=== PATIENT | female | born 1975 | race Caucasian/White ===

== ENCOUNTER 2023-08-09 16:37 | Inpatient (IN) | payer BC, SELFPAY ==
[2023-08-09 13:19] VITALS: BP 101/80; BMI 31.9
[2023-08-09 13:35] LABS: % Eosinophils 18.5 % (0-6); % Immature Granulocytes 0.3 % (0-0.5); % Lymphocytes 40.3 % (20.5-51.1); % Monocytes 7.1 % (1.7-9.3); % Neutrophils 32.8 % (42.2-75.2); Absolute Basophils 0.1 10^3/uL (0-0.2); Absolute Eosinophils 1.3 10^3/uL (0-0.7); Absolute Lymphocytes 2.9 10^3/uL (1.2-3.4); Absolute Monocytes 0.5 10^3/uL (0.1-0.6); Absolute Neutrophils 2.4 10^3/uL (1.4-6.5); Hematocrit 35.1 % (37.0-47.0); Hemoglobin 12.9 g/dL (12.0-16.0); Mean Corp Hgb Conc. 36.8 g/dL (33.0-37.0); Mean Corpuscular Hgb 31.9 pg (27.0-31.0); Mean Corpuscular Volume 86.7 fL (81.0-99.0); Mean Platelet Volume 8.8 fL (7.4-10.4); Nucleated Red Blood Cells % 0 %; Platelet Count 254 10^3/uL (130-400); Red Blood Cell Count 4.05 10^6/uL (4.20-5.40); Red Cell Dist. Width 12.4 % (11.5-14.5); White Blood Cell Count 7.2 10^3/uL (4.8-10.8)
[2023-08-09 13:46] LABS: ALT (SGPT) 22 U/L (0-35); AST (SGOT) 28 U/L (14-36); Albumin 4.4 g/dl (3.5-5.0); Alkaline Phosphatase 81 U/L (38-126); Blood Urea Nitrogen 18 mg/dl (7-17); Calcium 9.7 mg/dl (8.4-10.2); Carbon Dioxide 26 mmol/L (22-30); Chloride 105 mmol/L (98-107); Estimated Creatinine Clearance > 125 ml/min; Glucose 124 mg/dl (70-99); Potassium 3.6 mmol/L (3.5-5.1); Sodium 140 mmol/L (135-145); Total Bilirubin 0.6 mg/dl (0.2-1.3); Total Protein 6.9 g/dl (6.3-8.2); eGFR > 60.00
[2023-08-09 14:00] VITALS: BP 106/61
[2023-08-09 14:28] LABS: Troponin I < 0.012 ng/ml
--- NOTE | 2023-08-09 14:31 | ED.GENMED ---
History of Present Illness
General
Chief Complaint: Fainting Sensation
Source: patient and spouse
Exam Limitations: none
Time Seen by Provider: 08/09/23 13:22
Nursing documentation reviewed up to this point in time: agreed with
Travel History
Have you had any contact with someone who has COVID-19?: No
Do you have any symptoms of coronavirus? Fever > 100 degrees, chills, cough, shortness of breath, sore throat, loss of taste or smell, muscle aches, or headache?: No
History of Present Illness
History of Present Illness:
47-year-old female with past medical history of obesity who presents to the emergency room with her for evaluation of abdominal pain and associated dizziness, nausea/vomiting. Patient reports that she was in her normal state of health this
morning and was out for lunch with a friend this afternoon. She says that after she finished eating she began to have acute onset of upper abdominal pain. She says that pain became quite severe and she began to feel lightheaded as if she might
pass out. She says that she felt nauseated and she had an episode of vomiting. She says that her friend checked patient's pulse and noted that it was in the 40s and EMS was called to bring her to the hospital. Patient says that she still has
abdominal pain although not quite as severe�points to the upper abdomen and the right side somewhat worse than the left. She denies any chest pain at any point in time. She denies any diarrhea today although she did have diarrhea a few days ago
after eating [employer]. She denies any urinary issues. She says she has never had similar symptoms in the past. She did receive 4 mg of IV Zofran from EMS which seems to help with her nausea.
Review of Systems
Review of Systems
All Other Systems: ROS reviewed and negative except as documented in HPI and ROS
Constitutional: Denies fever or chills
EENT: Denies sore throat or runny nose
Respiratory: Denies cough or trouble breathing
Cardiac: Reports diaphoresis and syncope (Presyncope); Denies chest pain or palpitations
ABD/GI: Reports abdominal pain, nausea and vomiting; Denies diarrhea or constipated
: Denies dysuria or flank pain
Musculoskeletal: Denies neck pain or back pain
Neurological: Reports dizzy; Denies headache, weakness or numbness
Phy Exam
Physical Exam
Physical Exam:
General: Awake, alert, oriented x3; no acute distress
Head: Normocephalic, atraumatic
Eyes: Conjunctiva normal, sclera anicteric
Throat: Airway intact, handling secretions
Neck: Trachea midline, supple without meningismus
Lungs: Clear to auscultation bilaterally, no wheezing, rales, rhonchi
Heart: Bradycardia with regular rhythm, no murmurs, gallops, or rubs
Abd: Soft, non distended, tender to palpation right upper abdomen with voluntary guarding
Back: No CVA tenderness
Neuro: Cranial nerves grossly intact, speech fluid
Skin: no rash
Extremities: No edema in extremities, equal pulses in all extremities
Scores
Heart Failure Risk
Heart Failure Risk Score: Not Applicable
Heart Score for Chest Pain Patients
STEMI patient?: Not applicable
Withdrawal Assessment of Alcohol
Withdrawal Assessment Completed?: Not applicable
Course
Orders/Labs/Results
Orders:
Orders
08/09/23 13:15
Electrocardiogram (*1) Urgent
Reason for Study: Syncope
EKG- Treatment ONCE
08/09/23 13:18
Complete Blood Count/With Diff Urgent
Comprehensive Metabolic Panel Urgent
Lipase Urgent
Comment: ADD ON
08/09/23 13:54
US Abdomen Complete/Upper Urgent
Comment:
Reason For Exam: RUQ abd pain
08/09/23 13:55
Troponin I Urgent
08/09/23 13:57
Add On- LAB Urgent
Tests Added?: Lipase
Abnormal Lab Results
08/09/23
13:18
RBC 4.05 L 10^6/uL
(4.20-5.40)
Hct 35.1 L %
(37.0-47.0)
MCH 31.9 H pg
(27.0-31.0)
Absolute Eos (auto) 1.3 H 10^3/uL
(0-0.7)
Neutrophils % 32.8 L %
(42.2-75.2)
Eosinophils % 18.5 H %
(0-6)
BUN 18 H mg/dl
(7-17)
Glucose 124 H mg/dl
(70-99)
Lipase > 4000 H* U/L
(23-300)
08/09/23 13:18
08/09/23 13:18
Vital Signs
Initial and Last Documented VS:
Initial Vital Signs
Pulse Ox
100
08/09/23 13:18
Last Documented Vital Signs
Temp Pulse Resp BP Pulse Ox
36.7 C 42 15 101/80 97
08/09/23 13:19 08/09/23 13:45 08/09/23 13:45 08/09/23 13:19 08/09/23 13:45
MDM/Problems Addressed
Differential Diagnosis Includes:
Lightheadedness: Bradydysrhythmia, increased vagal tone/vasovagal episode in the setting of pain, dehydration
Abdominal pain: Cholecystitis, cholelithiasis, choledocholithiasis, gastritis, pancreatitis, appendicitis less likely based on abruptness of onset
MDM/Problems Addressed:
47-year-old female presents for evaluation of abdominal pain, lightheadedness�ate lunch and had acute onset abdominal pain that became quite severe which was followed by lightheadedness, sweatiness and nausea/vomiting. Symptoms improved slightly
but still has significant pain. Vital signs significant for bradycardia but otherwise unremarkable. EKG shows sinus bradycardia with no AV block. Plan to place an IV check labs including CBC and a CMP; will check a troponin. Will check a lipase.
Will check upper abdominal ultrasound. Will reassess after the above. Suspect likely symptomatic cholelithiasis and increased vagal tone related to pain resulting in bradycardia and lightheadedness.
Labs reviewed: CBC unremarkable, CMP shows no clinically significant abnormalities�notably normal LFTs however her lipase is markedly elevated at >4000 consistent with a diagnosis of acute pancreatitis. By history this sounds like gallstone
pancreatitis but interestingly no gallstones noted on abdominal ultrasound. Suspect will need MRCP. Will admit for continued management of acute pancreatitis�Case discussed with hospitalist for admission.
Chronic conditions affecting care:
Obesity�higher risk for gallstones
*Radiology
Radiology exam reviewed: radiology read reviewed
*Pulse Oximetry
Patient hypoxic: no
*EKG
Interpreted by ED Provider?: Yes
Heart Rate: 44
Rate: bradycardiac
Rhythm: sinus
[place]: normal axis
Interval: normal interval
QRS Pattern: normal QRS
Ischemia: no ischemia
*Critical Care Note
Total Time (30-74mins, 75-104mins- exclusive of procedures): Not Applicable
Data Reviewed
Source: patient and spouse
ED Attending Note
-
Portions of this chart may have been created with voice recognition software.� Occasional wrong word or��sound alike� substitutions may have occurred due to the inherent limitations of voice recognition software.
Discharge Plan
Departure
Patient Disposition: Admit
Date of Disposition: 08/09/23
Time of Disposition: 15:23
Admit to doctor: Noir
Presentation/result/management discussed w/ accepting MD/DO: Hospitalist
Discharge Problem:
Acute pancreatitis, Bradycardia, sinus
Referrals:
Saleem Torres DO [Family Provider] -
Interventions
Interventions:
*Risk Screen - Suicide Last Done: 08/09/23 13:21
*General Assessment Last Done: 08/09/23 13:21
*Neglect/Abuse Screening Last Done: 08/09/23 13:21
ED- Fall Risk Assessment Last Done: 08/09/23 13:28
*ED COVID-19 Vaccine History Last Done: 08/09/23 13:21
ED- Cardiac Assessment Last Done: 08/09/23 13:28
ED- Neurological Assessment Last Done: 08/09/23 13:28
Discharge Date and Time
Print Language: SRI LANKAN
[2023-08-09 15:10] LABS: Lipase > 4000 U/L (23-300)
--- NOTE | 2023-08-09 16:24 | HPS.HSE ---
Addendum entered and electronically signed by Dre Johnson MD 08/09/23 16:42:
I saw and examined the patient.
The WHOLESALE LOAN PROCESSOR or PA's note was reviewed and I agree with the note.
Comment: 47-year-old female came with severe abdominal pain, nausea and vomiting. Lipase greater than 4000. Consistent with pancreatitis. Ultrasound abdomen with no gallstones. In the ED there was suspicion of stone in pancreatic duct. Patient
currently does not have any pain. No signs of sepsis. LFT's wnl. Will defer MRI/MRCP to GI. Lipase in AM. N.p.o., pain control, lactated Ringer's at 250 cc.LT@250cc/hr. check Igg4. denies etoh,NSAID use. Bradycardia suspect secondary to vagal
response from abdominal pain. Continue to monitor on telemetry.
General: Comfortable and Conversant
HEENT: Anicteric and Moist mucous membranes
Respiratory: Clear and Non Labored Respirations
Cardiac: S1/S2, Regular Rhythm and Bradycardia (Slightly)
GI: Soft and Tender (Mild tenderness in right upper quadrant and epigastric region without rebound or guarding)
Musculoskeletal: No Clubbing, No Cyanosis and No Edema
Neuro: Awake, Alert, Oriented and Nonfocal/grossly intact
Psych: Calm
Original Note:
Family Physician
-
Family Physician: Saleem Torres
Chief Complaint
-
Abdominal Pain
History of Present Illness
This is a 47 year old female with past medical history of insulin resistance and gluten intolerance that presents to the emergency department with abdominal pain. She reports the pain started today while she was eating lunch. Patient notes once her
abdominal pain started this afternoon, she experienced sweating, lightheadedness, cramping, pallor and low heart rate per her smart watch. She admits to an episode of vomiting prior to presenting to the emergency department. She reports she has had
abdominal discomfort after eating for the past week which was accompanied by diarrhea. Patient reports today's episode of abdominal pain was more severe than previous episodes, prompting her to present to the emergency department today. Patient
reports she typically avoids gluten but has been eating out recently and has been eating gluten. She describes the pain as severe and notes it is in the upper half of her abdomen. She denies fevers, sweats, and chills.
Medical History
Past Medical History
Past Medical History: Reports Other
Additional Past Medical History:
Gluten Intolerance
Insulin Resistance
Past Surgical History: Reports Other
Additional Past Surgical History:
Left Knee Surgery
Social History
Tobacco: Former Smoker (Quit over 20 years ago)
Alcohol: None
Family History
Family History: Not pertinent
Allergies / Home Medications
Allergies reflects when Allergies were last updated in [employer].
Home Medications with original date entered in [employer]
Allergy/Medication List:
Allergies
Allergy/AdvReac Type Severity Reaction Status Date / Time
gluten Allergy Hives Verified 08/09/23 13:19
Home Medications
Lactobac no.2-Bifidobac no.1-S. thermo 112.5 billion cell capsule (Visbiome) 1 cap PO DAILY 08/09/23
adrenal cortex (porcine) 80 mg tablet 80 mg PO DAILY 08/09/23
digestive enzymes 1 cap PO DAILY 08/09/23
fish oil-dha-epa 1,200 mg-144 mg-216 mg capsule 1 cap PO DAILY 08/09/23
tyrosine 500 mg capsule 500 mg PO DAILY 08/09/23
vitamin D3 125 mcg (5,000 unit)-vitamin K2 100 mcg capsule 1 cap PO DAILY 08/09/23
Review of Systems
-
A 12 point ROS was completed and negative except as noted: Yes
Constitutional: Denies Fever or Chills
Respiratory: Denies Cough or Trouble Breathing
Cardiac: Denies Chest Pain or Palpitations
Abdomen/GI: Reports See HPI
Physical Exam
Vital Signs
Vital Signs
Temp Pulse Resp BP Pulse Ox
98.1 F 52 13 106/61 95
08/09/23 13:19 08/09/23 14:00 08/09/23 14:00 08/09/23 14:00 08/09/23 14:00
Physical Exam
General: Comfortable and Conversant
HEENT: Anicteric and Moist mucous membranes
Respiratory: Clear and Non Labored Respirations
Cardiac: S1/S2, Regular Rhythm and Bradycardia (Slightly)
GI: Soft and Tender (Mild tenderness in right upper quadrant and epigastric region without rebound or guarding)
Rectal: Deferred by Provider
Musculoskeletal: No Clubbing, No Cyanosis and No Edema
Skin: Warm and Dry
Neuro: Awake, Alert, Oriented and Nonfocal/grossly intact
Psych: Calm
Laboratory Results
-
08/09/23 13:18
08/09/23 13:18
Laboratory Results
Total Bilirubin 0.6 mg/dl (0.2-1.3) 08/09/23 13:18
AST 28 U/L (14-36) 08/09/23 13:18
ALT 22 U/L (0-35) 08/09/23 13:18
Alkaline Phosphatase 81 U/L (38-126) 08/09/23 13:18
Troponin I < 0.012 ng/ml 08/09/23 13:55
Lipase Cancelled 08/09/23 13:55
Data Reviewed
-
Lab Data: Labs Reviewed by me
Impression/Plan
-
Acute Pancreatitis
-Consult GI
-Continue NPO/IVFs
-Check triglyceride, and IgG 4 level
Gluten Intolerance
-Patient reports she has never been formally been tested for Celiac disease but has been avoid gluten for many years
DVT proph: Lovenox
Code Status: Full Code
--- NOTE | 2023-08-09 16:42 | W.PN.UPDATE ---
Update Note
Progress Note Update
For billing purpose only
--- NOTE | 2023-08-09 16:55 | CON.GI ---
Addendum entered and electronically signed by Yenifer Rosen DO 08/09/23 18:56:
Patient seen and examined independently of GRANT. I agree with her note with my additions below
Katherin is a 47-year-old female who does not see medical doctors but follows with a functional medicine RN. She comes in with multiple episodes of epigastric abdominal discomfort with radiation into the back with some associated nausea that really
progressed until this morning she also vomited and the pain lasted over an hour. She then came to the emergency room where she had blood work showing an elevated lipase greater than 4000. Her LFTs are normal. Her ultrasound showed no ductal
dilatation.
She does not drink alcohol, her ultrasound showed no ductal dilatation and her gallbladder was well-visualized and is normal. Pancreas is not well-visualized on ultrasound. No family history of pancreatitis. She denies any other GI symptoms with
no dysphagia, nausea, vomiting, chronic abdominal pain she does have some mild chronic constipation and was taking magnesium glycine 8 in the past. She takes multiple supplements including: seed probiotic, vitamin D/K2, adrenal supplement,
thyroidtane, fish oil, silver colloid, methylated B12, 'Ryze coffee' 2 cups a day which is a mushroom based coffee and 'Ryze cocoa' at night she states she has been taking the coffee and Coke over the past 3 to 4 weeks. She was on Ozempic but has
not been on this in over a year.
Her recent best friend was also diagnosed with pancreatitis just a couple of days ago. She says her friend drink significant alcohol.
# Epigastric pain and elevated lipase with normal LFTs and ultrasound -she does not drink alcohol, there is no biliary stones on imaging and LFTs are normal, non-smoker
-- Currently asymptomatic and stable
-- She does meet criteria for pancreatitis based on her epigastric pain and elevated lipase
-- Etiology for the pancreatitis -medications especially various supplements and herbals vs infectious vs malignancy (doubt) -unlikely stones based on completely normal LFTs and an ultrasound
-- IV fluids with lactated Ringer's, check triglycerides
-- Told her to avoid all supplements unless they are absolutely necessary for her health
-- Clear liquids are fine
-- Told her all future GLP-1 drugs are not okay in the setting of having pancreatitis
Original Note:
Consultation
-
Date/Time Consultation Requested: 08/09/23 1600
Date/Time Consultation Performed: 08/09/23 1615
Requesting Provider: HARDEEP Cavanaugh
Performing Provider: Dr. Rosen/Grant Neal
Reason for Consultation: abd pain, elevated lipase
Medical History
Chief Complaint / HPI
Chief Complaint: abdominal pain, N/V
History of Present Illness:
47-year-old female with past medical history of documented gestational diabetes otherwise follows with a functional medicine RN (Angela Rodarte RN) presents to the emergency room with intermittent abdominal pain since 07/30/2023. Since 07/30/2023 she
was not eating gluten-free. She states on that day she had a hamburger and developed acute abdominal pain that was epigastric, dull, heavy feeling with radiation through the back. She states this lasted a few hours. The following day she ate at
[employer] and the pain returned similar in nature. The following day she then ate at [employer] and had a blooming onion and that also made the pain come back. On 08/02/2023 she had eggs dan and toast that she also recreated the pain.
On 08/03/2023 she ate chicken wings at [employer] with similar pain. She then came back to [place] where she had 1 to 2 days of bone broth and followed gluten-free which she did not have any discomfort. She then had a turkey burger
and felt okay. On 08/07/2023 she ate at the restaurant [facility] and had return of pain. She then went out with her friend today and had an omelette with goat cheese and an Latvian muffin and had abrupt onset of discomfort associated with the same pain
that she has had with the sensation that she had have a bowel movement. She states she went to the bathroom tried to have a bowel movement. And then had sensation of nausea. She did vomit. Her heart rate was in the 40s with a near syncopal event
and she was brought to the emergency room. At the present time she has no further discomfort. The patient does not take any prescription medications. Her supplements include seed probiotic, vitamin D/K2, adrenal supplement, thyroidtane, fish oil,
silver colloid, methylated B12, 'Ryze coffee' 2 cups a day which is a mushroom based coffee and 'Ryze cocoa' at night she states she has been taking the coffee and Coke over the past 3 to 4 weeks. She does not drink any alcohol. She does not
smoke. She denies any fevers, chills, melena, hematochezia, dysphagia or odynophagia. No early satiety or unintentional weight loss. She denies any acholic stools or bilirubinuria.
Past Medical History
Past Medical History: Other (gestational diabetes, gluten intolerance)
Past Surgical History: Orthopedic (left knee surgery)
Social History
Alcohol: None
Drug: None
Personal:
Living: With Family
Employment: Employed
Family History
Family History: Other (Family history gastrointestinal malignancy or IBD)
Allergies / Home Medications
Allergy/AdvReac Type Severity Reaction Status Date / Time
gluten Allergy Hives Verified 08/09/23 13:19
�Medication �Instructions �Recorded
Lactobac no.2-Bifidobac no.1-S. 1 cap PO DAILY 08/09/23
thermo 112.5 billion cell capsule
(Visbiome)
adrenal cortex (porcine) 80 mg 80 mg PO DAILY 08/09/23
tablet
digestive enzymes 1 cap PO DAILY 08/09/23
fish oil-dha-epa 1,200 mg-144 1 cap PO DAILY 08/09/23
mg-216 mg capsule
tyrosine 500 mg capsule 500 mg PO DAILY 08/09/23
vitamin D3 125 mcg (5,000 1 cap PO DAILY 08/09/23
unit)-vitamin K2 100 mcg capsule
Review of Systems
-
All other systems: A 12 pt ROS was Negative except as stated above in HPI
Vital Signs
Temp Pulse Resp BP Pulse Ox
98.1 F 52 13 106/61 95
08/09/23 13:19 08/09/23 14:00 08/09/23 14:00 08/09/23 14:00 08/09/23 14:00
Physical Exam
Exam
General: No Apparent Distress
HEENT: Anicteric
Respiratory: Clear
Cardiac: Regular Rhythm
GI: Soft, Non Tender, Non Distended and Normal Bowel Sounds
Skin: Warm and Dry
Neuro: AO x 3
Psych: Calm
Results
WBC 7.2 10^3/uL (4.8-10.8) 08/09/23 13:18
Hgb 12.9 g/dL (12.0-16.0) 08/09/23 13:18
Hct 35.1 % (37.0-47.0) L 08/09/23 13:18
MCV 86.7 fL (81.0-99.0) 08/09/23 13:18
Plt Count 254 10^3/uL (130-400) 08/09/23 13:18
Absolute Neuts (auto) 2.4 10^3/uL (1.4-6.5) 08/09/23 13:18
Sodium 140 mmol/L (135-145) 08/09/23 13:18
Potassium 3.6 mmol/L (3.5-5.1) 08/09/23 13:18
Chloride 105 mmol/L (98-107) 08/09/23 13:18
Carbon Dioxide 26 mmol/L (22-30) 08/09/23 13:18
BUN 18 mg/dl (7-17) H 08/09/23 13:18
Creatinine 0.6 mg/dL (0.6-1.0) 08/09/23 13:18
Calcium 9.7 mg/dl (8.4-10.2) 08/09/23 13:18
Total Bilirubin 0.6 mg/dl (0.2-1.3) 08/09/23 13:18
AST 28 U/L (14-36) 08/09/23 13:18
ALT 22 U/L (0-35) 08/09/23 13:18
Alkaline Phosphatase 81 U/L (38-126) 08/09/23 13:18
Lipase Cancelled 08/09/23 13:55
Diagnostic Image Results:
US Abd:
IMPRESSION: Normal.
Electronically signed by Gianni Gallegos MD, 08/09/2023 3:11 PM
Prior GI Procedures:
EGD:never had
Colonoscopy:never had . Cologuard 2 years ago. Patient states was normal
Assessment / Plan
-
47-year-old female with past medical history of documented gestational diabetes otherwise follows with a functional medicine RN (Angela Rodarte RN) presents to the emergency room with intermittent abdominal pain since 07/30/2023. Patient with dietary
Indiscretions since that time including not being gluten-free although not documented celiac. Also with fatty meals that seem to be triggering these episodes as well. Normal LFTs. Elevated lipase greater than 4000. Multiple supplements. New
addition of Ryze coffe/cocoa over the past 3 to 4 weeks.
Impression:
Epigastric pain post prandial
Elevated Lipase
Plan:
-IVF
-Check Triglycerides, IgG4 subclasses
-MRI/MRCP to eval pancreas and ducts
-Avoid supplements
-Further recommendations to be forthcoming.
Data Reviewed
-
Ultrasound: Report Reviewed by me
-
-
Thank you for consultation and allowing me to participate in the patient's care. Please call the junior automation engineer GI physician during the after hours with any questions or concerns.
[2023-08-09] MEDS: LR 1000 IV ×3 (17:10→21:02)
[2023-08-09 17:15] LABS: Triglycerides 110 mg/dl (10-149)
[2023-08-09 17:16] LABS: Alcohol None Detected
[2023-08-09 17:32] VITALS: BMI 30.4
[2023-08-09 17:33] VITALS: BP 136/64
[2023-08-09] MEDS: LOVENOX 40 MG SC (17:51)
[2023-08-09 17:54] LABS: Glucose - Point of Care 111 mg/dl (70-99)
[2023-08-09 19:59] VITALS: BP 128/57
[2023-08-09 23:30] VITALS: BP 102/59
[2023-08-10 01:14] LABS: Glucose - Point of Care 126 mg/dl (70-99)
[2023-08-10] MEDS: LR 1000 IV (02:04)
[2023-08-10] MEDS: TYLENOL 650 MG PO ×2 (02:06→11:02)
[2023-08-10 03:14] VITALS: BP 111/57
[2023-08-10 05:47] LABS: Hematocrit 34.8 % (37.0-47.0); Hemoglobin 12.1 g/dL (12.0-16.0); Mean Corp Hgb Conc. 34.8 g/dL (33.0-37.0); Mean Corpuscular Hgb 31.6 pg (27.0-31.0); Mean Corpuscular Volume 90.9 fL (81.0-99.0); Mean Platelet Volume 9.1 fL (7.4-10.4); Platelet Count 214 10^3/uL (130-400); Red Blood Cell Count 3.83 10^6/uL (4.20-5.40); Red Cell Dist. Width 12.4 % (11.5-14.5); White Blood Cell Count 9.5 10^3/uL (4.8-10.8)
[2023-08-10 06:17] LABS: ALT (SGPT) 18 U/L (0-35); AST (SGOT) 21 U/L (14-36); Albumin 3.6 g/dl (3.5-5.0); Alkaline Phosphatase 71 U/L (38-126); Blood Urea Nitrogen 15 mg/dl (7-17); Calcium 9.1 mg/dl (8.4-10.2); Carbon Dioxide 29 mmol/L (22-30); Chloride 110 mmol/L (98-107); Estimated Creatinine Clearance 116 ml/min; Glucose 108 mg/dl (70-99); Lipase 409 U/L (23-300); Magnesium 2.1 mg/dl (1.6-2.3); Potassium 4.5 mmol/L (3.5-5.1); Sodium 143 mmol/L (135-145); Total Bilirubin 0.3 mg/dl (0.2-1.3); Total Protein 5.9 g/dl (6.3-8.2); eGFR > 60.00
[2023-08-10 06:17] LABS: Glucose - Point of Care 113 mg/dl (70-99)
[2023-08-10 06:44] LABS: TSH Reflex To Free T4 1.32 uIU/ml (0.47-4.68)
[2023-08-10 07:00] VITALS: BP 120/61
[2023-08-10 08:53] LABS: Glycohemoglobin (HgbA1c) 5.9 % (4.0-5.6)
--- NOTE | 2023-08-10 10:36 | CM ---
Pt off unit at MRI. Spoke with pts at bedside
Pt lives with her in a 2 story home. 2 children 1 in college, 1 living in [place]
Works PT, independent, drives
DME - none
SNF/HH - no past hx
Has ride at d/c
PCP - Dr Anali Torres
Pharm - [facility]
CM will follow for d/c needs
Plan - anticipate home no needs
[2023-08-10 11:00] VITALS: BP 135/71
[2023-08-10 11:01] LABS: Glucose - Point of Care 105 mg/dl (70-99)
--- NOTE | 2023-08-10 11:58 | W.PN.HOSP.TC ---
Today's Communication/Plan
-
Low-fat diet
Bowel regimen
Discharge
Assessment / Plan
Assessment / Plan
Gen-AAOx3, NAD, obese
HEENT-NC, AT, anicteric, clear oral mm
Neck-supple
CV-reg, no M, +S1/S2
Lungs-clear B/L
Abd-soft, NT, ND
Ext-no edema
Musculoskeletal-no cyanosis, clubbing
Skin-warm and dry
Neuro-grossly non-focal
Psych-calm, cooperative
Acute pancreatitis - idiopathic so far. Rule out herbal remedy induced pancreatitis. Recommend stopping all herbal remedies, discussed with patient. IgG4 sent, results pending.
Abdominal MRI showed normal pancreas and biliary anatomy. Incidental sub-centimeter pancreatic tail cystic lesion without suspicious features, pseudocyst vs side branch IPMN. Radiologist recommends follow-up MRI in one year, discussed with patient.
All symptoms of pancreatitis resolved. Tolerating clears. Advance to low fat diet.
Discharge today if she tolerates solid food.
Outpatient follow up with GI, PCP.
Impaired fasting glucose - HgbA1c 5.9%. She has a CGM already. She will follow up with PCP. Weight loss encouraged.
Constipation -recommend high-fiber diet. MiraLAX started. Continue on discharge. Discussed with patient.
Obesity due to excess calories
Full code
Dispo - can d/c home later today if she tolerates solid food. Discussed with patient, RN.
Anticipated Discharge: Today
Subjective/Interval History
-
Date of Service: August 10, 2023
Patient seen/examined. Feeling much better, denies pain, N/V. Complaining of constipation.
Objective Data
-
Labs:
Laboratory Results
08/10/23
05:15
WBC 9.5
Hgb 12.1
Hct 34.8 L
Plt Count 214
Sodium 143
Potassium 4.5
Chloride 110 H
Carbon Dioxide 29
BUN 15
Creatinine 0.7
Glucose 108 H
Calcium 9.1
Total Bilirubin 0.3
AST 21
ALT 18
Alkaline Phosphatase 71
Vital Signs:
Vital Signs
Temp Pulse Resp BP Pulse Ox
98.0 F 58 16 135/71 99
08/10/23 11:00 08/10/23 11:00 08/10/23 11:00 08/10/23 11:00 08/10/23 11:00
I&O
08/09/23 08/10/23 08/11/23
06:59 06:59 06:59
Intake Total 240 / 240
Balance 240 / 240
Review of Systems
-
History Source: Patient
All other systems: Reviewed and negative
--- NOTE | 2023-08-10 12:11 | W.DS.TRANS ---
DC Summary - Social Work Nurse
-
Discharge Instructions:
Discharge Diagnosis/Procedures Acute pancreatitis
Diet Low Fat,Low Cholesterol
Activity As tolerated
Driving Restrictions As prior to admission
Bathing Restrictions None
Instructions:
Stand-Alone Forms:
Changes to Home Medications: No
Discharge Medications:
DC Medications w/original date entered in [employer]
polyethylene glycol 3350 17 gram oral powder packet ([employer]yLax) 17 g PO DAILY #0 ea 08/10/23
Home Medication Changes
Pending Results: No
[2023-08-10] MEDS: MIRALAX 17 GRAMS PO (12:13)
[2023-08-10 12:33] LABS: Glucose - Point of Care 135 mg/dl (70-99)
[2023-08-10 15:00] VITALS: BP 118/67
--- NOTE | 2023-08-10 15:49 | PTCARENOTE ---
Pt. tolerated low fat lunch. Discharged 2 hours after with no complaints of pain.
[2023-08-11 11:31] LABS: IgG Subclass 4 25 mg/dL (1-123)
== END 2023-08-10 15:50 | disposition home or self-care (01) | DRG 439 ==
LOC: 3 WEST ACU 16:37
PROVIDERS: Physician Assistant Medical; ADMITTING PHYSICIAN Internal Medicine; ATTENDING PHYSICIAN Hospitalist; CONSULT PHYSICIAN Internal Medicine; EMERGENCY PHYSICIAN Emergency Medicine; FAMILY PHYSICIAN Family Medicine
DX: K85.90 Acute pancreatitis without necrosis or infection, unspecified (principal); K86.3 Pseudocyst of pancreas; K90.41 Non-celiac gluten sensitivity; R00.1 Bradycardia, unspecified; R73.01 Impaired fasting glucose; E66.9 Obesity, unspecified; K59.00 Constipation, unspecified; Z68.31 Body mass index [BMI] 31.0-31.9, adult; Z87.891 Personal history of nicotine dependence
CPT/HCPCS: 74183; 76700; 80053; 82077; 82787; 82962; 83036; 83690; 83735; 84443; 84478; 84484; 85025; 85027; 93005; 99285; A9575

== ENCOUNTER → 2023-08-16 12:47 | Outpatient (REF) | payer BC, SELFPAY | LOC: WDC 12:47 | PROVIDERS: ATTENDING PHYSICIAN Obstetrics & Gynecology Gynecology; FAMILY PHYSICIAN Family Medicine | DX: Z12.31 Encounter for screening mammogram for malignant neoplasm of breast (principal) | CPT/HCPCS: 77063; 77067 ==

== ENCOUNTER 2024-01-16 06:27 | Day surgery (SDC) | payer BC, SELFPAY | END 2024-01-16 15:32 | disposition home or self-care (01) | LOC: GI 06:27 | PROVIDERS: ATTENDING PHYSICIAN Internal Medicine Gastroenterology | DX: Z12.11 Encounter for screening for malignant neoplasm of colon (principal); K64.0 First degree hemorrhoids | CPT/HCPCS: G0121 ==

== ENCOUNTER → 2024-08-20 07:31 | Outpatient (REF) | payer BC, SELFPAY | LOC: WDC 07:31 | PROVIDERS: ATTENDING PHYSICIAN Obstetrics & Gynecology Gynecology; FAMILY PHYSICIAN Nurse Practitioner Family | DX: Z12.31 Encounter for screening mammogram for malignant neoplasm of breast (principal) | CPT/HCPCS: 77063; 77067 ==